=== PATIENT | male | born 1950 | race Caucasian/White ===

== ENCOUNTER → 2019-02-16 | Outpatient (CLI) | payer MEDICARE | LOC: RADMRIMAIN 06:38 | PROVIDERS: ATTEND Urology | DX: Z53.9 Procedure and treatment not carried out, unspecified reason (principal) ==

== ENCOUNTER → 2022-05-12 | Outpatient (CLI) | payer MEDICARE ==
--- NOTE | 2022-05-13 17:12 | MR ---
EXAMINATION TYPE: MR Prostate wo/w con DATE OF EXAM: 05/12/2022 10:34 AM COMPARISON: None. CLINICAL INDICATION:Male, 72 years old with history of R97.20 ELEVATED PSA, TECHNIQUE: Multi-planar, multi-sequence imaging of the pelvis is performed prior to and following the uncomplicated administration of bolus intravenous gadolinium. CONTRAST: 12 Gadavist Interpretive Criteria: PI-RADS v2.1 SERUM PSA: 8.0 on 06/30/2021 14.3 on 04/13/2022 SURGICAL PATHOLOGY: No data available. FINDINGS: Prostatic dimensions: 5.2 x 3.8 x 5.2 cm. Ellipsoid Volume:53.80 (PSA density=0.26 ng/mL/mL) CENTRAL GLAND (Central and Transition Zones/CZ+TZ): Low T2 signal along the anterior base of the central gland measuring roughly 2.9 x 1.7 with extension across midline. This extends across the capsule at least 4.7 cm . There is capsular bulging noted an teriorly. PIRADS 5 PERIPHERAL ZONE (PZ): Low T2 no focus of scarring in the left posterior peripheral mid gland with low DWI signal likely rep resenting scarring. Additional linear, indistinct wedgelike areas of low ADC, and low T2 signal, No e vidence of masslike abnormality, or localized perfusional hypervascularity, to further suggest a focu s of clinically significant prostate cancer. (PI-RADS 2) SEMINAL VESICLES (SV): Diffusely collapse or atrophic, bilaterally. PERIPROSTATIC TISSUES: Unremarkable. LYMPH NODES: No enlarged pelvic lymph node. REMAINING PELVIS: Bladder wall is within normal limits given distention. No abnormal free or organized intrapelvic fluid collection. No pathologic bowel dilation or mural thickening. OSSEOUS STRUCTURES: No suspicious osseous abnormality. IMPRESSION: 1. PIRADS 5 lesion central gland base crossing midline with capsular bulging anteriorly. 2. Moderate BPH, estimated gland volume 53 mL. 3. No suspicious osseous lesion. No lymphadenopathy. No evidence of prostate adenocarcinoma involving the periprostatic tissues.
== END | disposition home or self-care (01) ==
LOC: RADMRIMAIN 09:14
PROVIDERS: ATTEND Urology
DX: R97.20 Elevated prostate specific antigen [PSA] (principal); N40.0 Benign prostatic hyperplasia without lower urinary tract symptoms
CPT/HCPCS: 72197; A9585